=== PATIENT | female | born 1970 | race Caucasian/White ===

== ENCOUNTER 2019-05-26 11:50 | Emergency (ER) | payer BC ==
[~2019-05-26] VITALS: Ht 167.6 cm; Wt 85.0 kg
[2019-05-26 13:00] VITALS: BP 159/83
[2019-05-26 13:12] LABS: BASOPHILS % (AUTO) 0.4 % (0-1); EOSINOPHILS # (AUTO) 0.2 X10'3 (0-0.9); EOSINOPHILS % (AUTO) 2.3 % (0-6); HEMATOCRIT 42.8 % (35.0-45.0); HEMOGLOBIN 14.7 g/dl (12.0-16.0); LYMPHOCYTES # (AUTO) 2.4 X10'3 (1.1-4.8); LYMPHOCYTES % (AUTO) 22.4 % (21-51); MEAN CORPUSCULAR HEMOGLOBIN 30.3 PG (27.0-31.0); MEAN CORPUSCULAR HGB CONC 34.5 g/dL (33.0-36.5); MEAN CORPUSCULAR VOLUME 87.7 FL (78-98); MEAN PLATELET VOLUME 6.8 FL (7.4-10.4); MONOCYTES # (AUTO) 0.8 X10'3 (0-0.9); MONOCYTES % (AUTO) 7.4 % (2-12); NEUTROPHILS # (AUTO) 7.3 X10'3 (1.8-7.7); NEUTROPHILS % (AUTO) 67.5 % (42-75); PLATELET COUNT 303 X10'3 (140-440); RED BLOOD COUNT 4.87 X10'6 (4.20-5.60); RED CELL DISTRIBUTION WIDTH 13.4 % (11.5-14.5); WHITE BLOOD COUNT 10.9 X10'3 (4.5-11.0)
--- NOTE | 2019-05-26 13:22 | NUR ---
pt states she was sent from her therapist office. she states her therapist called and spoke with "Dr Catalan" and was instructed to come in. call placed to [facility] spoke with Hari BARROS he states he will speak with and attempt to get pt addmited up stairs
[2019-05-26 13:24] LABS: ALANINE AMINOTRANSFERASE 15 U/L (12-78); ALBUMIN 3.8 G/DL (3.4-5.0); ALBUMIN/GLOBULIN RATIO 0.9 (1.1-1.5); ALKALINE PHOSPHATASE 65 IU/L (46-116); ANION GAP 4 (8-16); ASPARTATE AMINO TRANSFERASE 11 U/L (10-37); BILIRUBIN,TOTAL 0.2 MG/DL (0.1-1.0); BLOOD UREA NITROGEN 18 MG/DL (7-18); CALCIUM 9.3 MG/DL (8.5-10.1); CHLORIDE 104 MMOL/L (99-107); CREATININE 0.75 MG/DL (0.40-0.90); GLUCOSE 101 MG/DL (70-104); POTASSIUM 3.8 MMOL/L (3.5-5.1); SODIUM 136 MMOL/L (135-145); TOTAL CARBON DIOXIDE 27.8 MMOL/L (24-32); eGFR 83 ML/MIN
[2019-05-26 13:36] LABS: ETHANOL < 0.010 GM/DL (0.0-0.010)
[2019-05-26 13:42] LABS: CLARITY,URINE SLIGHTLY CLOUDY (Clear); COLOR,URINE STRAW (Yellow); GLUCOSE, URINE NEGATIVE (Neg); KETONES,URINE NEGATIVE (Neg); LEUKOCYTE ESTERASE ,URINE NEGATIVE (Neg); NITRITES, URINE NEGATIVE (Neg); OCCULT BLOOD,URINE TRACE-INTACT (Neg); PROTEIN,URINE NEGATIVE (Neg); URINE HCG NEGATIVE (NEG); UROBILINOGEN,URINE 0.2 E.U/dL (0.2-1.0)
[2019-05-26 13:46] LABS: UA COLLECTION TYPE CLN CATCH MIDSTREAM
[2019-05-26 13:47] LABS: MUCUS STRANDS FEW /LPF (Neg); SQUAMOUS EPITHELIAL CELL,UR MANY /LPF (FEW)
[2019-05-26 13:48] LABS: BACTERIA,URINE FEW /HPF (Neg); RBC,URINE 0-2 /HPF (0-2); WBC,URINE 0-4 /HPF (0-4)
[2019-05-26 13:50] LABS: URINE AMPHETAMINE SCREEN NEGATIVE (Neg); URINE BARBITUATE SCREEN NEGATIVE (Neg); URINE BENZODIAZEPINES SCREEN NEGATIVE (Neg); URINE CANNABINOID SCREEN NEGATIVE (Neg); URINE COCAINE SCREEN NEGATIVE (Neg); URINE METHADONE SCREEN NEGATIVE (Neg); URINE OPIATE SCREEN NEGATIVE (Neg); URINE PHENCYCLIDINE SCREEN NEGATIVE (Neg)
--- NOTE | 2019-05-26 14:37 | NUR ---
CALL TO [facility] SPOKE WITH KD BARROS, HE STATES HE WILL SEND SOMONE DOWN FOR ADMIT EVAL
[2019-05-26] MEDS ORDERED: [UNRECOGNIZED DRUG - OTHER] TOP (16:04)
[2019-05-26] MEDS ORDERED: IBUP-1984 PO (16:04)
[2019-05-26] MEDS ORDERED: GUAN1TAB20 PO (16:04)
[2019-05-26] MEDS ORDERED: LIT300C PO (16:04)
[2019-05-26] MEDS ORDERED: PROP10TA10 PO (16:04)
[2019-05-26] MEDS ORDERED: LORA-268 PO (16:04)
[2019-05-26] MEDS ORDERED: ESCI20TA PO (16:04)
[2019-05-26] MEDS ORDERED: CETI-102 PO (16:04)
== END 2019-05-26 14:58 | disposition home or self-care (01) ==
LOC: ER 11:51
DX: F32.9 Major depressive disorder, single episode, unspecified (principal); Z88.0 Allergy status to penicillin; Z88.2 Allergy status to sulfonamides; Z79.899 Other long term (current) drug therapy
CPT/HCPCS: 36415; 80053; 80305; 80320; 81001; 81025; 84443; 85025; 99283

== ENCOUNTER 2019-05-26 13:37 | Inpatient (IN) | payer BC ==
[~2019-05-26] VITALS: Ht 167.6 cm; Wt 84.1 kg
[2019-05-26] MEDS ORDERED: magnesium hydroxide 30ml (MOM) UD suspension PO PRN (15:10)
[2019-05-26] MEDS ORDERED: hydrOXYzine 25 MG tablet PO PRN (15:10)
[2019-05-26] MEDS ORDERED: loperamide 2mg capsule PO PRN (15:10)
[2019-05-26] MEDS ORDERED: acetaminophen 325mg tablet PO PRN ×2 (15:10)
[2019-05-26] MEDS ORDERED: mag hydrox/Alum hydrox/simeth 30ml oral suspension PO PRN (15:10)
[2019-05-26] MEDS ORDERED: LORazepam 1 MG tablet PO PRN (15:10)
--- NOTE | 2019-05-26 15:13 | NUR ---
Admission note: Pt arrived on the unit 1500 voluntarily for depression and SI. Pt complains of SI for 2 weeks. "I dont want to live anymore". Pt plans to drive off a ramses or OD on Fentanyl so her can collect on the life insurance. Pt has history of PTSD, SVT and previous suicide attempts.
[2019-05-26 15:57] VITALS: BP 149/93
[2019-05-26] MEDS ORDERED: PROP10TA10 PO (16:04)
[2019-05-26] MEDS ORDERED: CETI-102 PO (16:04)
[2019-05-26] MEDS ORDERED: LIT300C PO (16:04)
[2019-05-26] MEDS ORDERED: [UNRECOGNIZED DRUG - OTHER] TOP (16:04)
[2019-05-26] MEDS ORDERED: IBUP-1984 PO (16:04)
[2019-05-26] MEDS ORDERED: LORA-268 PO (16:04)
[2019-05-26] MEDS ORDERED: ESCI20TA PO (16:04)
[2019-05-26] MEDS ORDERED: GUAN1TAB20 PO (16:04)
[2019-05-26] MEDS ORDERED: ibuprofen 200mg tablet PO PRN (16:15)
[2019-05-26] MEDS ORDERED: cetirizine 10mg tablet PO PRN (16:15)
[2019-05-26 20:00] VITALS: BP 134/87
[2019-05-26] MEDS: propranolol 10mg tablet PO SCH (20:20)
[2019-05-26] MEDS: LORazepam 0.5 MG tablet PO SCH (20:20)
[2019-05-26] MEDS: guanFACINE 1 mg tablet PO SCH (20:20)
--- NOTE | 2019-05-27 05:20 | NUR ---
Nursing Progress Note: Legal hold: VOL Client on voluntary status for DTS Report received from WALTER Noriega with use of SBAR Why are they here: Pt arrived on the unit 1500 voluntarily for depression and SI. Pt complains of SI for 2 weeks. "I dont want to live anymore". Pt plans to drive off a ramses or OD on Fentanyl so her can collect on the life insurance. Pt has history of PTSD, SVT and previous suicide attempts. Assessment What has happened this shift: Patient laying in bed awake at the beginning of shift. Patient is pleasant and cooperative. She has remained in her room throughout the shift. Patient's sister visited this shift and patient anxiety increased where she admitted feeling uneasy about being brought up to the unit feeling like she was under the wrong level of care. Between RANDN, this nurse, and the patient's sister talking with her and explaining the unit with the patient her anxiety was able to be relieved. Patient was concerned about medication changes but she remained understanding when explained that the doctor will change medications as they see fit to her care at this time and her medications are subject and she was understanding with explanation. Patient endorses SI with a plan to drive off a ramses and refuses HI, A/VH. 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 Later her sister added the patient has two teenagers in the home and for the [employer] program the patient drives to [place] from [place] each weekend increasing stress on the patient. Both the patient and her sister explained that there is severe childhood trauma resulting in the incarceration of their father. 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 Cognition: A/Ox4 Insight: Poor Judgment: Poor Interventions PRN's used: None Therapeutic interventions: 1:1 therapeutic assessment, maintained safe therapeutic milieu, provided active listening with positive reinforcement, provided medication administration/education/monitoring as needed; Q15 safety checks. Restraints/seclusion/emergency medication: N/A Justification of Continued Inpatient Treatment: Continued therapeutic support and medication management needed to provide stabilization, prevent decompensation, improve coping mechanisms decreasing risk to patient and re-admittance.
[2019-05-27 07:30] VITALS: BP 129/78
[2019-05-27 07:36] LABS: HEMOGLOBIN A1C 5.3 % (4.5-6.2)
[2019-05-27 07:39] LABS: CHOL/HDL RATIO 5.3 (0.00-4.99); CHOLESTEROL 203 MG/DL (0-200); HDL CHOLESTEROL 38 MG/DL (35-60); LDL CHOLESTEROL 148 MG/DL (50-100); TRIGLYCERIDES 186 MG/DL (20-135)
[2019-05-27] MEDS ORDERED: lithium carbonate 300mg SR tablet (LithoBID) PO SCH (08:00)
[2019-05-27] MEDS ORDERED: ESCITALOPRAM OXALATE 5 MG TABLET PO SCH (08:00)
[2019-05-27] MEDS ORDERED: [UNRECOGNIZED DRUG - OTHER] TOP SCH (08:00)
[2019-05-27] MEDS ORDERED: FLU VACC QS 2019-20 (6 MOS UP) 60 MCG/0.5 ML VIAL IMVAC ONE (08:00)
[2019-05-27] MEDS: propranolol 10mg tablet PO SCH ×2 (08:30→13:15)
[2019-05-27] MEDS: LORazepam 0.5 MG tablet PO SCH (08:31)
[2019-05-27] MEDS: guanFACINE 1 mg tablet PO SCH (08:31)
--- NOTE | 2019-05-27 13:22 | NUR ---
Met with Ct to complete Psychosocial Assessment. She was talkative and cooperative. She sees Dr Ledezma and has two therapists she works with along with group therapy. Met with Ct later to discuss her desire to discharge. She reported she would like to attend her appt with her therapist at 5 pm today for brainspotting. BERNIE Alvarez Addendum: 05/27/19 at 1325 by Phuong Gutierrez Amended: Links added.
--- NOTE | 2019-05-27 16:40 | NUR ---
Patient discharged AMA. Pt. denies SI/HI, A/V H. Pt. discharged with all belongings. Pt. shows no signs of emotional or psychological distress. Pt. discharged with and father to her home. Pt. given crisis hotlines and informed to call 911 if feeling unsafe. Pt. agrees.
== END 2019-05-27 16:46 | disposition left against medical advice (07) | DRG 885 ==
LOC: ADULT MH 13:37
PROVIDERS: ADMIT Psychiatry & Neurology Psychiatry; ATTEND Psychiatry & Neurology Psychiatry
DX: F33.1 Major depressive disorder, recurrent, moderate (principal); F43.10 Post-traumatic stress disorder, unspecified; F41.0 Panic disorder [episodic paroxysmal anxiety]; Z53.29 Procedure and treatment not carried out because of patient's decision for other reasons
CPT/HCPCS: 36415; 80061; 80178; 83036; 87081; 99285; Q2037

== ENCOUNTER 2021-03-07 11:00 | Emergency (ER) | payer BC ==
[~2021-03-07] VITALS: Ht 167.6 cm; Wt 79.6 kg
[~2021-03-07 11:00] MED LIST: CETI-90 PO; ESCI20TA PO; GUAN1TAB20 PO; IBUP-1984 PO; LIT300C PO; LORA-268 PO; PROP10TA10 PO; [UNRECOGNIZED DRUG - OTHER] TOP
[2021-03-07 13:43] LABS: BASOPHILS # (AUTO) 0.1 X10'3 (0-0.2); BASOPHILS % (AUTO) 0.6 % (0-1); EOSINOPHILS % (AUTO) 0.5 % (0-6); HEMATOCRIT 42.7 % (35.0-45.0); HEMOGLOBIN 14.6 g/dl (12.0-16.0); LYMPHOCYTES # (AUTO) 1.8 X10'3 (1.1-4.8); LYMPHOCYTES % (AUTO) 21.6 % (21-51); MEAN CORPUSCULAR HEMOGLOBIN 29.6 PG (27.0-31.0); MEAN CORPUSCULAR HGB CONC 34.3 g/dL (33.0-36.5); MEAN CORPUSCULAR VOLUME 86.2 FL (78-98); MEAN PLATELET VOLUME 6.9 FL (7.4-10.4); MONOCYTES # (AUTO) 0.6 X10'3 (0-0.9); MONOCYTES % (AUTO) 7.6 % (2-12); NEUTROPHILS # (AUTO) 5.9 X10'3 (1.8-7.7); NEUTROPHILS % (AUTO) 69.7 % (42-75); PLATELET COUNT 349 X10'3 (140-440); RED BLOOD COUNT 4.95 X10'6 (4.20-5.60); RED CELL DISTRIBUTION WIDTH 13.5 % (11.5-14.5); WHITE BLOOD COUNT 8.5 X10'3 (4.5-11.0)
[2021-03-07 13:59] LABS: ALANINE AMINOTRANSFERASE 18 U/L (12-78); ALBUMIN/GLOBULIN RATIO 1.1 (1.1-1.5); ALKALINE PHOSPHATASE 56 IU/L (46-116); ANION GAP 12 (8-16); ASPARTATE AMINO TRANSFERASE 14 U/L (10-37); BILIRUBIN,TOTAL 0.4 MG/DL (0.1-1.0); BLOOD UREA NITROGEN 4 MG/DL (7-18); BUN/CREATININE RATIO 5.1 (6.6-38.0); CALCIUM 8.5 MG/DL (8.5-10.1); CHLORIDE 104 MMOL/L (99-107); CREATININE 0.79 MG/DL (0.40-0.90); GLUCOSE 89 MG/DL (70-104); LIPASE 104 U/L (73-393); POTASSIUM 3.4 MMOL/L (3.5-5.1); SODIUM 140 MMOL/L (135-145); TOTAL CARBON DIOXIDE 23.7 MMOL/L (24-32); TOTAL PROTEIN 7.5 G/DL (6.4-8.2); eGFR 78 ML/MIN
[2021-03-07] MEDS ORDERED: potassium Cl 20 mEq SR tablet PO ONE (14:05)
[2021-03-07 14:16] LABS: UA COLLECTION TYPE CLN CATCH MIDSTREAM; URINE HCG NEGATIVE (NEG)
[2021-03-07 14:17] LABS: CLARITY,URINE SLIGHTLY CLOUDY (Clear); COLOR,URINE STRAW (Yellow); GLUCOSE, URINE NEGATIVE (Neg); KETONES,URINE >=80 mg/dl (Neg); LEUKOCYTE ESTERASE ,URINE NEGATIVE (Neg); NITRITES, URINE NEGATIVE (Neg); OCCULT BLOOD,URINE NEGATIVE (Neg); PH,URINE 8.5 (4.8-8.0); PROTEIN,URINE NEGATIVE (Neg)
[2021-03-07 14:22] LABS: MUCUS STRANDS MANY /LPF (Neg); SQUAMOUS EPITHELIAL CELL,UR MANY /LPF (FEW)
[2021-03-07 14:23] LABS: TRANSITIONAL EPI CELLS,URINE FEW /HPF
[2021-03-07 14:24] LABS: BACTERIA,URINE 2+ /HPF (Neg); RBC,URINE 0-2 /HPF (0-2); WBC,URINE 0-4 /HPF (0-4)
[2021-03-07] MEDS ORDERED: POLY17PO10 PO (14:30)
[2021-03-07 15:01] VITALS: BP 154/93
== END 2021-03-07 15:02 | disposition home or self-care (01) ==
LOC: ER 11:01
DX: K58.8 Other irritable bowel syndrome (principal); F32.9 Major depressive disorder, single episode, unspecified; Z88.0 Allergy status to penicillin; Z88.2 Allergy status to sulfonamides; Z79.899 Other long term (current) drug therapy
CPT/HCPCS: 36415; 80053; 81001; 81025; 83690; 85025; 99283

== ENCOUNTER 2021-03-11 09:25 | Emergency (ER) | payer BC ==
[~2021-03-11 09:25] MED LIST changes: +POLY17PO10 PO
== END 2021-03-11 11:25 | disposition left against medical advice (07) ==
LOC: ER 09:26
DX: R10.9 Unspecified abdominal pain (principal); Z53.21 Procedure and treatment not carried out due to patient leaving prior to being seen by health care provider